=== PATIENT | male | born 1990 | race Caucasian/White ===

== ENCOUNTER 2022-12-05 07:58 | Emergency (ER) | payer SELFPAY ==
[2022-12-05 08:02] VITALS: BP 139/97; PULSE 71; RESP 18; TEMP 37.1; O2SAT 99
--- NOTE | 2022-12-05 08:22 | ED.WOUNDLAC ---
HPI - Wound/Laceration General Chief Complaint: Wound/Laceration Stated Complaint: R heel burn Time Seen by Provider: 12/05/22 08:00 Source: patient and family Mode of arrival: ambulatory Limitations: no limitations History of Present Illness HPI narrative: patient is a 32-year-old male with right heel wound. Patient got concrete in his shoe over the past week and it rubbed against his skin and his shoe and made a wound. No tetanus in the past 10 years. Onset (ago): day(s) (5) Extremity Location: Right: foot (heel) Place: work Patient tetanus UTD: No Context: accidental Associated symptoms: pain, loss of feeling/numbness and nausea/vomiting Related Data Allergies Allergy/AdvReac Type Severity Reaction Status Date / Time No Known Allergies Allergy Verified 12/05/22 08:14 Review of Systems Review of Systems: All systems reviewed & are unremarkable except as noted in HPI and below Constitutional: Constitutional: Reports no additional constitutional complaints Eyes: Eyes: Reports no additional eye complaints ENT: Reports system reviewed and no additional complaints, except as documented Cardiovascular: Cardiovascular: Reports no additional cardiovascular complaints Respiratory: Respiratory: Reports no additional respiratory complaints Gastrointestinal: Gastrointestinal: Reports no additional gastrointestinal complaints Genitourinary: Genitourinary: Reports no additional male genitourinary complaints Musculoskeletal: Musculoskeletal: Reports no additional musculoskeletal complaints Integumentary/Breasts: Skin/Breast: Reports system reviewed and no additional complaints, except as docu Neurologic: Reports system reviewed and no additional complaints, except as documented Psychiatric: Psychiatric: Reports no additional psychiatric complaints Endocrine: Endocrine: Reports no additional endocrine complaints Hematologic/Lymphatic: Hematologic/Lymphatic: Reports no additional hematologic/lymphatic complaints Allergic/Immunologic: Allergic/Immunologic: Reports no additional allergic/immunologic complaints Exam Const: General: healthy appearing Nutritional Appearance: well nourished Orientation/consciousness: patient oriented x3 Chest: Chest palpation & inspection: normal inspection of the chest Resp: Effort & Inspection: normal respiratory effort Auscultation: clear to auscultation bilaterally Cardio: Rate: regular rate Rhythm: regular rhythm Heart sounds: no murmurs GI: GI Palp: Yes Soft to palpation, No Tenderness to palpation present (GI) and No Guarding due to palpation present (GI) Extrem: General: abnormal to inspection, clubbing, cyanosis or edema noted and pedal edema present Other: Right heel has an irritated and inflamed locally red wound with crusting and excoriation Psych: Mental Status: mental status grossly abnormal Affect: No normal affect and No Sad affect present Course Vital Signs Vital signs: Vital Signs Temperature 37.1 C 12/05/22 08:02 Pulse Rate 71 12/05/22 08:02 Respiratory Rate 18 12/05/22 08:02 Blood Pressure 139/97 H 12/05/22 08:02 Pulse Oximetry 99 12/05/22 08:02 Oxygen Delivery Room Air 12/05/22 08:02 Temperature 37.1 C 12/05/22 08:02 Pulse Rate 71 12/05/22 08:02 Respiratory Rate 18 12/05/22 08:02 Blood Pressure 139/97 H 12/05/22 08:02 Pulse Oximetry 99 12/05/22 08:02 Oxygen Delivery Room Air 12/05/22 08:02 Discharge Plan Discharge Clinical Impression: Wound cellulitis Patient Disposition: Home, Self-Care Condition: Stable Instructions: Antibiotic Form, Puncture Wound (ED) Prescriptions: New cephalexin 500 mg capsule 500 mg PO Q8H 7 Days Qty: 21 0RF Follow-up/Referrals: UNKNOWN,DOCTOR [Primary Care Provider] - Time of Disposition: 08:29
[2022-12-05] MEDS: TETANUS,DIPHTHERIA,AC PERTUSSIS ADULT 0.5 ML (ADACEL) IM (08:37)
[2022-12-05 09:00] VITALS: BP 138/82; PULSE 88; RESP 19; TEMP 36.6; O2SAT 98
== END 2022-12-05 09:06 | disposition home or self-care (01) ==
PROVIDERS: Emergency Provider Emergency Medicine; PCP Physician Assistant
DX: S91.301A Unspecified open wound, right foot, initial encounter (principal); L03.115 Cellulitis of right lower limb; Z23 Encounter for immunization; W45.8XXA Other foreign body or object entering through skin, initial encounter
CPT/HCPCS: 90471; 90715; 99283

== ENCOUNTER 2023-01-01 08:09 | Emergency (ER) | payer SELFPAY ==
--- NOTE | ~2023-01-01 | CT_ITS ---
EXAMINATION: CT abdomen pelvis wo con DATE: 01/01/2023 08:41 INDICATION: Low back pain. Nausea, vomiting and diarrhea for 2 weeks. TECHNIQUE: Computed tomography (CT) of the abdomen and pelvis was performed without intravenous contr ast. The dose-length product was 637.39 mGy-cm. Automated exposure control and iterative reconstructi on technique were employed. COMPARISON: None. FINDINGS: Lung bases are unremarkable. Heart size normal. No significant pleural or pericardial effus ion. There is a right renal artery stent. The liver, spleen, pancreas, adrenal glands and kidneys are unremarkable. Nonobstructive bowel gas pattern. No significant vascular abnormality. No lymphadenopa thy. Normal appendix. No free air or free fluid. Gallbladder is present. Small fat-containing left in guinal hernia. No acute osseous abnormality. Small fat-containing umbilical hernia. IMPRESSION: 1. No acute abdominal abnormality. Reviewed, dictated and finalized at location L.
[2023-01-01 08:09] VITALS: BP 146/85; PULSE 68; RESP 16; TEMP 36; O2SAT 99
[2023-01-01 08:31] LABS: Appearance Urine Clear (Clear); Bilirubin Urine Negative (Negative); Blood Urine Trace-Intact (Negative); Color Urine Yellow (Yellow); Glucose Urine UA Negative (Negative); Ketones Urine Negative (Negative); Leukocyte Esterase Ur Negative LEU/UL (Negative); Nitrate Urine Negative (Negative); Protein Urine Trace (Negative); Specific Grav Ur >= 1.030 (1.010-1.020)
[2023-01-01 08:39] LABS: Add Urine Microscopic? YES; RBC Urine 0-2 /hpf (0-2)
[2023-01-01 08:40] LABS: Bacteria Urine Trace /hpf; Mucus Urine Few /lpf; WBC Urine None seen /hpf (0-3)
[2023-01-01] MEDS: KETOROLAC (*BKC) 60 MG/2 ML VIAL IM (08:41)
[2023-01-01] MEDS: ORPHENADRINE CITRATE 30 MG/ML 2 ML VIAL 60 MG IM (08:41)
--- NOTE | 2023-01-01 08:58 | ED.BACK ---
HPI - Back Pain/Injury General Chief Complaint: Back Pain/Injury Stated Complaint: lower back pain Time Seen by Provider: 01/01/23 08:24 Source: patient and family Mode of arrival: ambulatory Limitations: no limitations History of Present Illness HPI Narrative: This is 32-year-old male that presents with low back pain does work where performs heavy lifting and has been having back pain that he rates about 8/10 for the last 2 weeks has tried [id number]-[id number] medication with minimal relief. Patient does have a history of a right renal stent, with no dysuria no hematuria no flank pain no fever chills no abdominal pain no nausea vomiting, no saddle paresthesias no radiation of his pain into his lower extremities. MD elicited complaint: back pain Pertinent past history: prior back pain Onset (ago): week(s) Timing: constant Severity: moderate Pain scale (0-10): 8 Similar Symptoms Previously: Yes Quality: aching Location: lumbar spine Related Data Allergies Allergy/AdvReac Type Severity Reaction Status Date / Time No Known Allergies Allergy Verified 12/05/22 08:14 Review of Systems Review of Systems: All systems reviewed & are unremarkable except as noted in HPI and below PMFSH Surgical History Surgical History History of renal stent Exam Const: General: healthy appearing Nutritional Appearance: well nourished Orientation/consciousness: patient oriented x3 Limitations: no limitations Neck: Neck: normal visual inspection and no lymphadenopathy Chest: Chest palpation & inspection: normal inspection of the chest Resp: Effort & Inspection: normal respiratory effort Auscultation: clear to auscultation bilaterally Cardio: Rate: regular rate Rhythm: regular rhythm GI: GI Palp: Yes Soft to palpation Auscultation: normal bowel sounds : General: Yes bladder normal to palpation Urinary Catheter: Urinary Catheter: patent and draining Back/Spine/Pelvis: Back: no CVA tenderness Skin: General skin exam: normal color Rashes: no rashes Wounds: no wounds Neuro: General: patient oriented x3, moves all extremities, no meningeal signs and no focal motor deficits Extrem: Other: low back pain L4 bilateral paravertebral tenderness with palpation with a negative straight leg raising test. Psych: Mental Status: mental status grossly normal Affect: normal affect Course Course Emergency Course: CT scan performed and reviewed with patient and family shows that there is intact her right renal stent with no stones no obstruction. The patient was given muscle relaxer along with Toradol and has significant relief of his pain. Vital Signs Vital signs: Vital Signs Temperature 36.0 C L 01/01/23 08:09 Pulse Rate 68 01/01/23 08:09 Respiratory Rate 16 01/01/23 08:09 Blood Pressure 146/85 H 01/01/23 08:09 Pulse Oximetry 99 01/01/23 08:09 Oxygen Delivery Room Air 01/01/23 08:09 Temperature 36.0 C L 01/01/23 08:09 Pulse Rate 68 01/01/23 08:09 Respiratory Rate 16 01/01/23 08:09 Blood Pressure 146/85 H 01/01/23 08:09 Pulse Oximetry 99 01/01/23 08:09 Oxygen Delivery Room Air 01/01/23 08:09 MDM - Back Pain/Injury Lab Data Labs: Lab Results 01/01/23 Range/Units 08:24 Urine Color Yellow (Yellow) Urine Appearance Clear (Clear) Urine pH 6.0 (5.0-8.0) Ur Specific [place] >= 1.030 H (1.010-1.020) Urine Protein Trace H (Negative) Urine Glucose (UA) Negative (Negative) Urine Ketones Negative (Negative) Ur Blood (Man) Trace-intact H (Negative) Urine Nitrate Negative (Negative) Urine Bilirubin Negative (Negative) Urine Urobilinogen 1.0 (0.2-1.0) mg/dL Leukocyte Esterase Rfl Negative (Negative) TAE/UL Urine RBC 0-2 (0-2) /hpf Urine WBC None seen (0-3) /hpf Urine Bacteria Trace (None) /hpf Urine Mucus Few H /lpf Critical Care Time Critical Care Time
== END 2023-01-01 09:12 | disposition home or self-care (01) ==
PROVIDERS: Emergency Provider Emergency Medicine; PCP Physician Assistant
DX: S39.012A Strain of muscle, fascia and tendon of lower back, initial encounter (principal); X50.0XXA Overexertion from strenuous movement or load, initial encounter
CPT/HCPCS: 74176; 81001; 96372; 99284; J1885; J2360

== ENCOUNTER 2024-05-23 11:55 | Emergency (ER) | payer BC, SELFPAY ==
[2024-05-23 12:32] VITALS: BP 154/93; PULSE 90; RESP 16; TEMP 36.7; O2SAT 96
--- NOTE | 2024-05-23 13:28 | ED_ITS ---
HPI - URI/Sore Throat General Chief Complaint: Upper Respiratory Infection Stated Complaint: Cough/Vomiting Time Seen by Provider: 05/23/24 13:29 Source: patient, RN notes reviewed and old records reviewed Mode of arrival: ambulatory Limitations: no limitations History of Present Illness HPI Narrative: 33 year old male accompanied by son with complaints of illness for one week which includes acute cough which makes him gag at times and he has vomited. Patient reports that his throat is sore from all the coughing and he has had intermittent fevers and felt achy this past week. Patient reports that he has taken Ibuprofen Day Quil and NyQuil and also Mucinex for his symptoms. MD elicited complaint: cough and sore throat Onset (ago): week(s) (1) Severity: moderate Able to tolerate fluids by mouth: Yes Treatments prior to arrival: other (DayQuil, NyQuil Ibuprofen and Mucinex) Related Data Allergies Allergy/AdvReac Type Severity Reaction Status Date / Time No Known Allergies Allergy Verified 12/05/22 08:14 Review of Systems Review of Systems: CONSTITUTIONAL: Reports malaise, chills, sweats, or fever. EYES: Denies visual changes, redness, or discharge. ENT: Reports rhinorrhea, congestion, sinus pain, no otalgia and some sore throat. CARDIOVASCULAR: Denies chest pain, palpitations, or edema. RESPIRATORY: Reports harsh cough.? Denies dyspnea. GASTROINTESTINAL: Denies abdominal pain,no nausea, has vomited with cough, no diarrhea SKIN: Denies rash or itching. MUSCULOSKELETAL: Reports myalgia. NEUROLOGIC: Denies headache. All systems reviewed & are unremarkable except as noted in HPI and below PMFSH Past Medical History Medical History (Updated 05/24/24 @ 16:32 by Apurva Birch NP) Back strain Surgical History Surgical History History of renal stent Social History Social History Smoking status: Current every day smoker Alcohol use details: social Substance use: current Substance use type: marijuana Living arrangements: with family Gender identity (if verbalized by the patient): Male Comments At time of signature, agree with nursing past medical, surgical, social and family history. There is no relevant family history pertinent to the presenting complaint Exam Narrative: GENERAL: Ill-appearing, well-nourished, and in no acute distress. HEAD: Normocephalic EYES: PERRLA, conjunctivae clear ENT: Nares clear, turbinates edematous and erythematous, clear discharge. Mucous membranes moist. TM pearly kahn with dull light reflex bilaterally; no tragal tenderness. Oropharynx erythematous without lesions. Tonsils re minimally enlarged and without exudate, no drooling, no hoarseness, no trismus, uvula midline.post nasal drainage noted NECK: Supple. No lymphadenopathy CHEST: Clear to auscultation, breath sounds equal. No wheezing, rhonchi, rales, or stridor. No respiratory distress, speaks in full sentences.frequent harsh cough noted, SAO2 96% on room air HEART: Regular rate and rhythm. No murmur heard. SKIN: Warm, dry, no rash. NEURO: Alert and oriented x3. PSYCH: Normal mood and affect Course Course Emergency Course: Patient is aware of diagnosis, understands and agrees to treatment plan.? Anticipatory guidance given.? Patient agrees to follow-up as directed and is aware of reasons to seek care at the emergency department. Portions of this record may have been created with voice recognition software Level of Care: Express Care Visit Vital Signs Vital signs: Vital Signs Temperature 36.7 C 05/23/24 12:32 Pulse Rate 90 05/23/24 12:32 Respiratory Rate 16 05/23/24 12:32 Blood Pressure 154/93 H 05/23/24 12:32 Pulse Oximetry 96 05/23/24 12:32 Oxygen Delivery Room Air 05/23/24 12:32 Temperature 36.7 C 05/23/24 12:32 Pulse Rate 90 05/23/24 12:32 Respiratory Rate 16 05/23/24 12:32 Blood Pressure 154/93 H 05/23/24 12:32 Pulse Oximetry 96 05/23/24 12:32 Oxygen Delivery Room Air 05/23/24 12:32 Reviewed MDM - URI/Sore Throat MDM Narrative Medical decision making narrative: Differential diagnosis considered: Landry virus, strep pharyngitis, allergic rhinitis, upper respiratory tract infection, sinusitis, rhinosinusitis, nasopharyngitis. viral pharyngitis, otitis media, otitis externa, pneumonia, bronchitis, viral cough syndrome, viral syndrome, and influenza.? Exam findings show no acute concerns or changes; patient is non-toxic appearing and is in no distress.? Patient is appropriate for outpatient treatment and follow-up. Differential Diagnosis Differential diagnosis: Likely upper respiratory infection, viral infection, bronchitis, pharyngitis and other (strep pharyngitis, acute cough) Medical Records Attestation: I reviewed the patient's medical records. Lab Data Attestation: I reviewed the patient's lab results. Lab results narrative: strep screen negative, culture sent Labs: Lab Results 05/23/24 Range/Units 13:40 POC Grp A Strep Screen Negative (Negative) Critical Care Time Critical Care Time Critical Care Time: No Discharge Plan Discharge Clinical Impression: Cough in adult patient Upper respiratory infection Qualifiers: URI type: unspecified URI Qualified Code(s): J06.9 - Acute upper respiratory infection, unspecified Patient Disposition: Home, Self-Care Condition: Stable Instructions: Antibiotic Form, Upper Respiratory Infection (ED), Acute Cough (ED) Additional Instructions: Increase fluids especially juices and water Hygo-ilu-peovzcw cough and cold medicine of your choice for your symptoms Mucinex daily make sure you are drinking plenty of fluids while taking this medicine heat to the face 20-30 minutes 4-6 times a day for pain Salt water gargles, throat lozenges or throat sprays as desired Antibiotic as directed--finished the medication Tylenol or ibuprofen for any fever pain If your symptoms persist, change or worsen significantly before you can contact your personal physician then please, without delay, go to the emergency department for further evaluation. Follow-up with PCP in 7-10 days or sooner if needed Follow up with PCP soon in regards to your blood pressure which is elevated above threshold for referral. Blood pressure above 120/80 may indicate pre-hype rtension. 154/93 Patient Language: [place] Prescriptions: New amoxicillin 500 mg capsule 500 mg PO Q8H Qty: 30 0RF Follow-up/Referrals: PHYSICIAN,SUGAR MIXER [Primary Care Provider] - Time of Disposition: 14:13 Quality Malorie Coma Scale Eyes: Open Verbal: Oriented and Alert Motor: Follows Commands [place] Coma Total Score: 15
[2024-05-23 13:52] LABS: EDSTREPNEGPOS1 Negative (Negative)
--- OUTSIDE RECORDS SUMMARY | 2024-05-23 14:37 | XMS_ITS | Clinical Summary ---
Author Organization [facility] Address [address] [place] [address] Phone Care Team Providers Care Concrete Fence Builder Name Role Phone Pedro Melton Primary Care Provider [phone] Allergies No known active allergies Medications guaiFENesin-code ine (GUAIFENESIN AC) 100-10 MG/5ML Syrup Take 5 mL by mouth every 4 hours as needed for Cough. 120 mL 0 06/18/2015 Active ondansetron (ZOFRAN) 4 MG Tablet Take 1 Tablet by mouth every 8 hours as needed for Nausea - 1st line. 10 Tablet 01/24/2021 Active Social History Tobacco Use Types Packs/Day Years Used Date Smoking Tobacco: Every Day Cigarettes Smokeless Tobacco: Current Chew Alcohol Use Standard Drinks/Week Comments No 0 (1 standard drink = 0.6 oz pur e alcohol) Sex and Gender Information Value Date Recorded Sex Assigned at Not on file Legal Sex Male 8:09 PM CDT Gender Identity Not on file Sexual Orientation Not on file Last Filed Vital Signs Vital Sign Reading Time Taken Comments Blood Pressure 128/87 01/24/2021 1:00 PM CDT Pulse 71 01/24/2021 1:00 PM CDT Temperature 36.2 C (97.2 F) 01/24/2021 9:32 AM CDT Respiratory Rate 14 01/24/2021 1:00 PM CDT Oxygen Saturation 99% 01/24/2021 1:00 PM CDT Inhaled Oxygen Concentration - - Weight 90.7 kg (200 lb) 01/24/2021 9:32 AM CDT Height 177.8 cm (5' 10 ) 01/24/2021 9:32 AM CDT Body Mass Index 28.7 01/24/2021 9:32 AM CDT Plan of Treatment Health Maintenance Due Date Last Done Comments Hepatitis C Virus (HCV) Screening 1990 TdaP Immunization 1990 Hepatitis B Immunization (1 of 3 - 19+ 3-dose series) 2009 Influenza Immunization (#1) 2023 SARS-COV-2 Immunization (2023- season) 2023 Respiratory Syncytial Virus (RSV) Immunization (Adult) (1 - 1-dose 75+ series) 2065 Meningococcal Immunization (ACWY) Aged Out No longer eligible based on patient's age to complete this topic Pneumococcal Immunization Combined Aged Out No longer eligible based on patient's age to complete this topic Rotavirus Immunization Aged Out No lo nger eligible based on patient's age to complete this topic Insurance [facility] Care Teams Concrete Fence Builder Relationship Specialty Start Date End Date Pedro Melton [address] [place] [address] PCP - General Physician Sisal Operator 01/24/21
--- OUTSIDE RECORDS SUMMARY | 2024-05-23 14:37 | XMS_ITS | Referral Summary ---
Author Organization [facility] Address [address] [place] [address] Care Team Providers Care Crisis Therapist Name Role Phone No, Physician Primary Care Provider [phone] Allergies No known active allergies Medications cyclobenzaprine (FLEXERIL) 10 mg tablet Take 1 tablet (10 mg total) by mouth 3 (three) times a day as needed for muscle spasms 12 tablet 12/29/2019 Active FLUoxetine (PROzac) 20 mg capsule TK 1 C PO QAM 02/20/2020 Active Active Problems No known active problems Social History Tobacco Use Types Packs/Day Years Used Date Smoking Tobacco: Every Day Cigarettes Smokeless Tobacco: Never Tobacco Cessation:Ready to Q uit: No; Counseling Given: No Alcohol Use Standard Drinks/Week Comments Never 0 (1 standard drink = 0.6 oz pur e alcohol) AUDIT-C Answer Date Recorded Q1: How often do you have a drink containing alc ohol? 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 Gender Identity Not on file Sexual Orientation Not on file Last Filed Vital Signs Vital Sign Reading Time Taken Comments Blood Pressure 128/74 10/02/2021 5:29 AM CDT Pulse 67 10/02/2021 5:29 AM CDT Temperature 36.5 C (97.7 F) 10/02/2021 5:29 AM CDT Respiratory Rate 15 10/02/2021 5:29 AM CDT Oxygen Saturation 100% 10/02/2021 5:29 AM CDT Inhaled Oxygen Concentration - - Weight 99.8 kg (220 lb) 10/01/2021 5:22 PM CDT Height 177.8 cm (5' 10 ) 10/01/2021 5:22 PM CDT Body Mass Index 31.57 10/01/2021 5:22 PM CDT Plan of Treatment Not on file Insurance [employer] P[place] Care Teams Crisis Therapist Relationship Specialty Start Date End Date No, Physician PCP - General 10/01/21
--- OUTSIDE RECORDS SUMMARY | 2024-05-23 14:38 | XMS_ITS | Clinical Summary ---
Author Organization [facility] Address [facility] [place] [address] Care Team Providers Care Kaiawhina Name Role Phone Lázaro Delgado MD Primary Care Provider [phone] Allergies No known active allergies Medications omeprazole 20 MG capsule Take 20 mg by mouth daily. 07/12/2020 Active Active Problems No known active problems Social History Tobacco Use Types Packs/Day Years Used Date Smoking Tobacco: Every Day Cigarettes Cigars Smokeless Tobacco: Never Comments:pt uses vape also Alcohol Use Standard Drinks/Week Comments Never 0 (1 standard drink = 0.6 oz pur e alcohol) Sex and Gender Information Value Date Recorded Sex Assigned at Not on file Legal Sex Male 7:39 AM CDT Gender Identity Not on file Sexual Orientation Not on file Last Filed Vital Signs Vital Sign Reading Time Taken Comments Blood Pressure 128/96 08/14/2020 3:30 PM CDT Pulse 76 08/14/2020 3:30 PM CDT Temperature 37.2 C (99 F) 08/14/2020 12:39 PM CDT Respiratory Rate 14 08/14/2020 3:30 PM CDT Oxygen Saturation 96% 08/14/2020 3:30 PM CDT Inhaled Oxygen Concentration - - Weight 99.8 kg (220 lb) 08/14/2020 12:28 PM CDT Height 177.8 cm (5' 10 ) 08/14/2020 12:28 PM CDT Body Mass Index 31.57 08/14/2020 12:28 PM CDT Plan of Treatment Health Maintenance Due Date Last Done Comments Annual Physical 1993 Pneumococcal Vaccine: Pediatrics (0 to 5 Years) and At-Risk Patients (6 to 64 Years) (1 of 2 - PCV) 1996 Hepatitis C 2008 DTaP, Tdap and Td Vaccines (1 - Tdap) 2009 12/22/1995, 07/05/1992, 06/27/1991, Additional history exists Hepatitis B Vaccines (1 of 3 - 19+ 3-dose series) 2009 COVID-19 Vaccine (1 - 2023-25 season) 2023 Influenza Adult (#1) 2024 HPV Vaccines Aged Out No longer eligi ble based on patient's age to complete this topic Meningococcal B Vaccine Aged Out No l onger eligible based on patient's age to complete this topic Meningococcal Vaccine Aged Out No claudia marzena eligible based on patient's age to complete this topic RSV Immunizations Under 20 Months Aged Out No longer eligible based on patient's age to complete this topic Insurance Care Teams Kaiawhina Relationship Specialty Start Date End Date Lázaro Delgado MD [address] [place] [address] PCP - General GASTROENTEROLOGY 08/11/20
--- OUTSIDE RECORDS SUMMARY | 2024-05-23 14:38 | XMS_ITS | Clinical Summary ---
Author Organization [facility] Address [address] [place] [address] Care Team Providers Care Computer Designer Name Role Phone No, Physician Primary Care Provider [phone] Allergies No known active allergies Medications cyclobenzaprine (FLEXERIL) 10 mg tablet Take 1 tablet (10 mg total) by mouth 3 (three) times a day as needed for muscle spasms 12 tablet 12/29/2019 Active FLUoxetine (PROzac) 20 mg capsule TK 1 C PO QAM 02/20/2020 Active Active Problems No known active problems Surgical History Surgery Date Site/Laterality Comments RENAL ARTERY STENT Medical History Medical History Date Comments Renal disorder Renal artery anomaly Social History Tobacco Use Types Packs/Day Years [...] on file Legal 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 Gender Identity Not on file Sexual Orientation Not on file Obstetrics History Last Filed Vital Signs Vital Sign Reading [...] 10/01/2021 5:22 PM CDT Plan of Treatment Health Maintenance Due Date Last Done Comments Depression Screening 1990 Hepatitis C Screening 1990 Pneumococcal vaccine <65 (1 of 2 - PCV) 1996 DTaP/Tdap/Td Vaccine (1 - Tdap) 2001 Varicella Vaccines (1 of 2 - 13+ 2-dose series) 11/13/2003 Hepatitis B Screening 2008 Regular Well Visit/Exam 18-64 2008 Influenza Vaccine (#1) 2023 HPV Vaccines Aged Out No longer eligi ble based on patient's age to complete this topic Insurance [employer] [place] Care Teams Computer Designer Relationship Specialty Start Date End Date No, Physician PCP - General 10/01/21
== END 2024-05-23 14:23 | disposition home or self-care (01) ==
PROVIDERS: Emergency Provider Registered Nurse
DX: R05.9 Cough, unspecified (principal); J06.9 Acute upper respiratory infection, unspecified; F17.290 Nicotine dependence, other tobacco product, uncomplicated; Z96.0 Presence of urogenital implants
CPT/HCPCS: 87081; 87880; 99213; G0463